=== PATIENT | female | born 1990 | race Caucasian/White ===

== ENCOUNTER 2016-11-29 11:16 | Outpatient (CLI) | payer SELFPAY ==
[2016-11-29 11:54] VITALS: BP 119/63; PULSE 89
[2016-11-29] MEDS ORDERED: PRENAT PO (11:55)
[2016-11-29] MEDS: TERBUTALINE 1 MG/ML INJ SC SCH ×2 (13:29→14:24)
[2016-11-29] MEDS ORDERED: LACTATED RINGER'S 1,000 ML IV SCH (13:30)
--- NOTE | 2016-11-29 14:06 | RADRPT ---
PROCEDURE: Limited OB ultrasound. CLINICAL INDICATION: labor TECHNIQUE: Sonographic evaluation to assess cervical length was performed. Transabdominal imaging of the gravid uterus was performed. COMPARISON: None FINDINGS: Single live intrauterine with cardiac activity is identified. The cervical length e quals 5.2 cm. Transverse maternal right presentation. Heart rate 148 beats per minute. Posterior grade 1 placenta. IMPRESSION: 1. Cervical length equals 5.2 cm. 2. Transverse lie RPTAT: JJ .Noel Pham MD, Date Time Electronically viewed and signed by .Noel Pham MD, on 11/29/2016 14:06 .L/
[2016-11-29 14:09] LABS: BASOPHIL # 0.1 10^3/ul (0.0-0.1); BASOPHILS % 0.5 % (0.0-2.0); EOSINOPHILS # 0.1 10^3/ul (0.0-0.5); EOSINOPHILS % 1.2 % (0.0-7.0); HEMATOCRIT 34.6 % (37.0-47.0); HEMOGLOBIN 11.5 g/dl (12.0-16.0); LYMPHOCYTES # 2.4 10^3/ul (0.8-2.9); LYMPHOCYTES % 20.9 % (15.0-51.0); MEAN CORPUSCULAR HGB CONC 33.2 g/dl (32.0-37.0); MEAN CORPUSCULAR VOLUME 87.2 fl (82.0-101.0); MONOCYTE # 0.7 10^3/ul (0.3-0.9); MONOCYTES % 5.9 % (0.0-11.0); NEUTROPHILS % 70.5 % (39.0-77.0); PLATELET COUNT 236 10^3/UL (140-415); RED BLOOD COUNT 3.97 10^6/ul (4.20-5.40); RED CELL DISTRIBUTION WIDTH 12.3 % (11.5-14.5); WHITE BLOOD COUNT 11.3 10^3/ul (4.8-10.8)
[2016-11-29 18:06] LABS: ADD UMIC YES; UR ASCORBIC ACID NEGATIVE (NEGATIVE); UR BILIRUBIN (Dip) NEGATIVE (NEGATIVE); UR BLOOD (Dip) NEGATIVE (NEGATIVE); UR CLARITY SLIGHTLY CLOUDY (CLEAR); UR COLOR YELLOW (YELLOW); UR GLUCOSE (Dip) NEGATIVE (NEGATIVE); UR KETONES (Dip) NEGATIVE (NEGATIVE); UR LEUKOCYTE ESTERASE (Dip) 1+ Leu/ul (NEGATIVE); UR MUCUS FEW /HPF (NONE SEEN); UR NITRITE (Dip) NEGATIVE (NEGATIVE); UR RBC 1 /HPF (0-5); UR SPECIFIC GRAVITY (Dip) 1.015 (1.003-1.030); UR TOTAL PROTEIN (Dip) NEGATIVE (NEGATIVE); UR UROBILINOGEN (Dip) NEGATIVE (NEGATIVE)
--- NOTE | 2016-11-29 18:59 | CONS ---
Date/Time of Note Date/Time of Note DATE: 11/29/16 TIME: 18:50 Consultation Date/Type/Reason Admit Date/Time November 29, 2016 OB triage consult Reason for Consultation This patient is a 26 years old 2 para 1 who had her previous delivery by section. Her estimated date of confinement is February 20, 2017 which makes her 28 weeks and 1 day. She came in complaining of left lower abdominal pain since morning. No other complaint no nausea no vomiting no diarrhea no dysuria On examination she is well-developed well-nourished somewhat overweight patient fairly comfortable. Her vital signs basically normal Blood pressure 119/63, pulse rate 62, respiration 18, temperature 97.8 Laboratory Tests Test 11/29/16 13:28 11/29/16 15:00 White Blood Count 11.310^3/ul Red Blood Count 3.9710^6/ul Hemoglobin 11.5g/dl Hematocrit 34.6% Mean Corpuscular Volume 87.2fl Mean Corpuscular Hemoglobin 29.0pg Mean Corpuscular Hemoglobin Concent 33.2g/dl Red Cell Distribution Width 12.3% Platelet Count 91416^3/UL Mean Platelet Volume 11.0fl Neutrophils % 70.5% Lymphocytes % 20.9% Monocytes % 5.9% Eosinophils % 1.2% Basophils % 0.5% Nucleated Red Blood Cells % 0.0/100WBC Neutrophils # 8.010^3/ul Lymphocytes # 2.410^3/ul Monocytes # 0.710^3/ul Eosinophils # 0.110^3/ul Basophils # 0.110^3/ul Nucleated Red Blood Cells # 0.010^3/ul Urine Color YELLOW Urine Clarity SLIGHTLY CLOUDY Urine pH 7.0 Urine Specific [place] 1.015 Urine Ketones NEGATIVEmg/dL Urine Nitrite NEGATIVEmg/dL Urine Bilirubin NEGATIVEmg/dL Urine Urobilinogen NEGATIVEmg/dL Urine Leukocyte Esterase 1+Shahida/ul Urine Microscopic RBC 1/HPF Urine Microscopic WBC 2/HPF Urine Mucus FEW/HPF Urine Hemoglobin NEGATIVEmg/dL Urine Glucose NEGATIVEmg/dL Urine Total Protein NEGATIVEmg/dl Current Medications Medications (Trade) Dose Ordered Sig/Caleb Route PRN Reason Start Time Stop Time Status Last Admin Dose Admin Lactated Ringer's (Lr) 1,000 ml @ 125 mls/hr Q8H IV 11/29/16 13:30 11/30/16 01:29 7/25/17 13:29 125 MLS/HR Terbutaline Sulfate (Brethine) 0.25 mg Q30MIN SC 11/29/16 13:30 11/29/16 15:00 DC 11/29/16 14:24 0.25 MG Constitutional: No chills, No diaphoresis, No disoriented, No febrile, No improved, No no complaints, No other, No poor po, No requiring IVF, No requiring O2 Eyes: No discharge, No no complaints, No other, No pain, No redness, No visual change ENT: No bleeding, No congestion, No discharge, No dysphagia, No no complaints, No other, No pain, No sore throat Respiratory: other (Chest clear to auscultation her precaution no rales) Cardiovascular: other (Heart normal sinus rhythm), No chest pain, No edema, No lightheadedness, No no complaints, No orthopenea , No palpitations, No paroxysmal nocturnal dyspnea Gastrointestinal: other (Abdomen is soft no rebound no CVA tenderness she has slight tenderness of both right and left lower quadrant and area no rebound no CVA tenderness), No blood, No constipation, No decreased appetite, No diarrhea, No flatus, No nausea, No no complaints, No pain, No passing stool, No vomiting Genitourinary: other (As I mentioned there was no costovertebral angle tenderness no dysuria), No bleeding, No discharge, No dysuria, No flank pain, No hematuria, No no complaints Musculoskeletal: No back pain, No bone/joint pain, No neck pain, No no complaints, No other, No restricted range of motion, No swelling Skin: No bruising, No erythema, No laceration, No no complaints, No other, No pruritis, No rash, No skin lesions Neurologic: other (Knee-jerk reflex are normal), No confusion, No dizziness, No focal-weakness, No headache, No no complaints , No seizure, No syncope Endocrine: No dry skin, No no complaints, No other, No polydypsia, No polyuria , No temp intolerance Lymphatic: No adenopathy, No lymphadema, No no complaints, No other, No tender nodes Additional Comments On lab studies her urinalysis was normal no bacteriuria no proteinuria. Her CBC was normal except for slight anemia hemoglobin of 11.5 and hematocrit of 34.6 WBC however was 11.3. On ultrasound study the result was a single live intrauterine with cardiac activity noted cervical length was 5.2 cm fetus in transverse position. Disposition. These normal findings (except for slightly elevated WBC) was discussed with patient and we offered her to go to emergency room for further workup due to the fact that wilde we did not find any abnormality Finaly she decided to go home if there are any other symptoms to come back , She did not want to go for further evaluation End of dictation Social History Smoking Status: Never smoker Exam/Review of Systems Vital Signs Vitals Vital Signs Date Time Temp Pulse Resp B/P Pulse Ox O2 Delivery O2 Flow Rate FiO2 11/29/16 11:54 97.8 89 119/63 Results Result Diagram: 11/29/16 1328 Results 24 hrs Laboratory Tests Test 11/29/16 13:28 11/29/16 15:00 White Blood Count 11.3 H Red Blood Count 3.97 L Hemoglobin 11.5 L Hematocrit 34.6 L Mean Corpuscular Volume 87.2 Mean Corpuscular Hemoglobin 29.0 Mean Corpuscular Hemoglobin Concent 33.2 Red Cell Distribution Width 12.3 Platelet Count 236 Mean Platelet Volume 11.0 H Neutrophils % 70.5 Lymphocytes % 20.9 Monocytes % 5.9 Eosinophils % 1.2 Basophils % 0.5 Nucleated Red Blood Cells % 0.0 Neutrophils # 8.0 H Lymphocytes # 2.4 Monocytes # 0.7 Eosinophils # 0.1 Basophils # 0.1 Nucleated Red Blood Cells # 0.0 Urine Color YELLOW Urine Clarity SLIGHTLY CLOUDY A Urine pH 7.0 Urine Specific [place] 1.015 Urine Ketones NEGATIVE Urine Nitrite NEGATIVE Urine Bilirubin NEGATIVE Urine Urobilinogen NEGATIVE Urine Leukocyte Esterase 1+ H Urine Microscopic RBC 1 Urine Microscopic WBC 2 Urine Mucus FEW A Urine Hemoglobin NEGATIVE Urine Glucose NEGATIVE Urine Total Protein NEGATIVE Medications Medications Current Medications Lactated Ringer's (Lr) 1,000 ml @ 125 mls/hr Q8H IV Last administered on t 13:29; Admin Dose 125 MLS/HR; Start 11/29/16 at 13:30; Stop 11/30/16 at 01: 29 HERIBERTO LEWIS MD Nov 29, 2016 18:59
== END 2016-11-29 18:58 | disposition home or self-care (01) ==
LOC: OBT 11:16 → L-D 11:17 → OBT 18:58
PROVIDERS: ATTEND Obstetrics & Gynecology
DX: O26.893 Other specified pregnancy related conditions, third trimester (principal); Z3A.28 28 weeks gestation of pregnancy; R10.32 Left lower quadrant pain
CPT/HCPCS: 36415; 76817; 81001; 85025; 96372; G0463; J7120; J3105

== ENCOUNTER 2017-02-20 18:00 | Inpatient (IN) | payer MEDICAID ==
[~2017-02-20] VITALS: Ht 160 cm; Wt 88.2 kg
[~2017-02-20 18:00] MED LIST: PRENAT PO
[2017-02-20 18:47] VITALS: Ht 160 cm; Wt 88.2 kg
[2017-02-20 18:48] VITALS: BP 113/75; PULSE 68; RESP 20
[2017-02-20] MEDS ORDERED: MISOPROSTOL 200 MCG TAB PR PRN (19:00)
[2017-02-20] MEDS ORDERED: OXYTOCIN 30 UNITS/LR 500 ML IV PRN (19:00)
[2017-02-20] MEDS ORDERED: BUTORPHANOL 2 MG INJ IV PRN (19:00)
[2017-02-20] MEDS ORDERED: METHYLERGONOVINE 0.2 MG INJ IM PRN (19:00)
[2017-02-20] MEDS ORDERED: IBUPROFEN 600 MG TAB PO PRN (19:00)
[2017-02-20] MEDS ORDERED: LIDOCAINE 1% (MPF) 30 ML INJ INJ PRN (19:00)
[2017-02-20] MEDS ORDERED: LACTATED RINGER'S 1,000 ML IV PRN (19:00)
[2017-02-20] MEDS ORDERED: OXYTOCIN 30 UNITS/LR 500 ML IV SCH ×2 (19:00)
[2017-02-20] MEDS ORDERED: CARBOPROST 250 MCG INJ IM PRN (19:00)
[2017-02-20] MEDS: LACTATED RINGER'S 1,000 ML IV SCH (20:17)
[2017-02-20 20:20] LABS: BASOPHILS % 0.3 % (0.0-2.0); EOSINOPHILS # 0.1 10^3/ul (0.0-0.5); EOSINOPHILS % 0.9 % (0.0-7.0); HEMATOCRIT 33.5 % (37.0-47.0); HEMOGLOBIN 11.1 g/dl (12.0-16.0); LYMPHOCYTES # 2.5 10^3/ul (0.8-2.9); LYMPHOCYTES % 23.5 % (15.0-51.0); MEAN CORPUSCULAR HEMOGLOBIN 27.4 pg (29.0-33.0); MEAN CORPUSCULAR HGB CONC 33.1 g/dl (32.0-37.0); MEAN CORPUSCULAR VOLUME 82.7 fl (82.0-101.0); MEAN PLATELET VOLUME 11.1 fl (7.4-10.4); MONOCYTE # 0.6 10^3/ul (0.3-0.9); MONOCYTES % 5.4 % (0.0-11.0); NEUTROPHIL # 7.4 10^3/ul (1.6-7.5); NEUTROPHILS % 69.3 % (39.0-77.0); PLATELET COUNT 223 10^3/UL (140-415); RED BLOOD COUNT 4.05 10^6/ul (4.20-5.40); RED CELL DISTRIBUTION WIDTH 13.8 % (11.5-14.5); WHITE BLOOD COUNT 10.6 10^3/ul (4.8-10.8)
[2017-02-20 20:40] LABS: INR 0.96; PROTIME 12.8 Sec (12.2-14.2)
[2017-02-20 20:41] LABS: PARTIAL THROMBOPLASTIN TIME 28.1 Sec (25.0-35.0)
[2017-02-20] MEDS ORDERED: DINOPROSTONE 10 MG VAG SUPP VAG ONE (21:30)
--- NOTE | 2017-02-20 22:18 | RADRPT ---
PROCEDURE: Obstetrical ultrasound, limited. CLINICAL INDICATION: Pelvic pain. TECHNIQUE: Multiple sonographic images of the pelvis were obtained using transabdominal technique . Images were obtained with hanley scale and color Doppler. The images were reviewed on a PACS works tation. COMPARISON: 11/29/2016. FINDINGS: There is a single living intrauterine gestation with the fetus in a cephalic presentation. he art tones of 137 beats per minute are identified. The placenta is fundal in location, grade 2. The re is no evidence of placenta previa or abruption. Measurements were made in order to determine age. The results are as follows: BPD =9.62 cm HC =34.20 cm AC =35.58 cm FL =7.30 cm. Estimated gestational age of approximately 38 weeks and 6 days. The estimated date of delivery is 02/28/2017. The EFW = 3662 +/- 549 grams. Estimated weight percentage equals 53.7%. IMPRESSION: Single viable intrauterine gestation of approximately 38 weeks and 6 days, with an ultrasound ELYSSA of 02/28/2017. .Johnny Cole MD, MD Date Time Electronically viewed and signed by .Johnny Cole MD, MD on 02/20/2017 22:17 .T/
[2017-02-21] MEDS ORDERED: LACTATED RINGER'S 1,000 ML IV ONE (00:11)
[2017-02-21] MEDS ORDERED: ONDANSETRON 4 MG INJ ONE (00:16)
[2017-02-21] MEDS ORDERED: CITRIC ACID/NA CITRATE 30 ML CUP ONE (00:16)
[2017-02-21] MEDS ORDERED: FENTAnyl 2MCG/ML-ROPIV 0.2% 100 ML ONE (00:20)
[2017-02-21] MEDS ORDERED: KETOROLAC 30 MG INJ IV PRN (00:30)
[2017-02-21] MEDS ORDERED: morphine 2 MG INJ IV PRN (00:30)
[2017-02-21] MEDS ORDERED: DIPHENHYDRAMINE 50 MG INJ IV PRN (00:30)
[2017-02-21] MEDS ORDERED: ONDANSETRON 4 MG INJ IV ONE (00:30)
[2017-02-21] MEDS ORDERED: ONDANSETRON 4 MG INJ IV PRN (00:30)
[2017-02-21] MEDS ORDERED: NALOXONE (0.4 MG/ML) INJ IV PRN (00:30)
[2017-02-21] MEDS ORDERED: CITRIC ACID/NA CITRATE 30 ML CUP PO ONE (00:30)
[2017-02-21] MEDS ORDERED: NALBUPHINE HCL (10 MG/1 ML) INJ IV PRN (00:30)
[2017-02-21] MEDS ORDERED: TRIMETHOBENZAMIDE 100 MG/ML VIAL IM PRN (00:30)
[2017-02-21] MEDS ORDERED: morphine 4 MG/ML VIAL IV PRN (00:30)
[2017-02-21] MEDS ORDERED: OXYTOCIN 30 UNITS/LR 500 ML IV SCH (01:30)
[2017-02-21] MEDS: LACTATED RINGER'S 1,000 ML IV SCH ×2 (02:49→09:41)
[2017-02-21] MEDS: FENTAnyl 2MCG/ML-ROPIV 0.2% 100 ML BAG EPI SCH ×2 (07:45→07:46)
--- NOTE | 2017-02-21 11:06 | HP ---
Date/Time of Note Date/Time of Note DATE: 02/21/17 TIME: 11:05 OB - History Hx of Present Free Text/Dictation G2[1 AT 40 WEEKS FOR INDUCTION Care: Good Care Ultrasounds: Normal mid trimester US Obstetrical Complications: None Medical Complications: None Past Family/Social History * Past Medical, Surgical, Family and Obstetric Histories reviewed from chart. OB Admission Exam Vital Signs Vital Signs Vital Signs Date Time Temp Pulse Resp B/P Pulse Ox O2 Delivery O2 Flow Rate FiO2 02/20/17 18:48 98.0 68 20 113/75 Room Air Physical Exam HEENT: WNL Heart: Rhythm Normal Lungs: Clear, Equal Abdomen: WNL Extremities: Normal Reflexes: Normal Cervical Dilatation: 10cm Effacement: 100% Station: +3 Membranes: Ruptured Amniotic Fluid: Clear Accelerations: Accelerations Present Decelerations: No Decelerations Last 72 hours Lab Results CBC & BMP 02/20/17 20:05 OB Assessment/Plan Reason for admission: induction of labor Induction Method: per Pitocin Protocol DEIRDRE STONE MD Feb 21, 2017 11:06
--- NOTE | 2017-02-21 11:07 | LDN ---
Date/Time of Note Date/Time of Note DATE: 02/21/17 TIME: 11:07 Delivery Summary TERM PREG . NSD Placenta Delivered: Spontaneously Meconium: none Episiotomy: No Perineal laceration: 1 Anesthesia type: Epidural Estimated blood loss: 300 Sponge & Needle done & correct: Yes All needle counts correct: Yes Any foreign bodies felt in the: No Problems: DEIRDRE STONE MD Feb 21, 2017 11:07
[2017-02-21 13:10] VITALS: BP 122/70; PULSE 58; RESP 18
[2017-02-21] MEDS: OXYTOCIN 30 UNITS/LR 500 ML IV SCH ×2 (13:15→17:03)
[2017-02-21] MEDS: IBUPROFEN 800 MG TAB PO SCH ×2 (13:21→17:58)
[2017-02-21] MEDS ORDERED: HYDROCODONE/APAP (5/325) TAB PO PRN (13:30)
[2017-02-21] MEDS ORDERED: OXYTOCIN 30 UNITS/LR 500 ML IV PRN (13:30)
[2017-02-21] MEDS ORDERED: DIPHENHYDRAMINE 25 MG CAP PO PRN (13:30)
[2017-02-21] MEDS ORDERED: LANOLIN 7 GM TUBE TOP PRN (13:30)
[2017-02-21] MEDS ORDERED: ACETAMINOPHEN 325 MG TAB PO PRN (13:30)
[2017-02-21] MEDS ORDERED: MAGNESIUM HYDROXIDE 30ML CUP PO PRN (13:30)
[2017-02-21] MEDS ORDERED: CARBOPROST 250 MCG INJ IM PRN (13:30)
[2017-02-21] MEDS ORDERED: METHYLERGONOVINE 0.2 MG INJ IM PRN (13:30)
[2017-02-21] MEDS ORDERED: ZOLPIDEM 5 MG TAB PO PRN (13:30)
[2017-02-21] MEDS ORDERED: MISOPROSTOL 200 MCG TAB PR PRN (13:30)
[2017-02-21] MEDS ORDERED: WITCH HAZEL/GLYCERIN PAD PR PRN (13:30)
[2017-02-21] MEDS ORDERED: BENZOCAINE 20% 56 ML SPRAY TOP PRN (13:30)
[2017-02-21] MEDS ORDERED: SENNA/DOCUSATE NA (8.6MG/50MG) TAB PO PRN (13:30)
[2017-02-21 16:00] VITALS: BP 131/73; PULSE 57; RESP 18
[2017-02-21] MEDS: LACTATED RINGER'S 1,000 ML IV* SCH ×2 (16:24→21:03)
[2017-02-21 19:45] VITALS: BP 110/62; PULSE 63; RESP 18
[2017-02-21] MEDS ORDERED: INFLUENZA VIRUS VACCINE 0.5 ML SYG IM* ONE (21:30)
[2017-02-22] VITALS: BP 116/62; PULSE 68; RESP 20
[2017-02-22] MEDS: IBUPROFEN 800 MG TAB PO SCH ×5 (00:13→23:50)
[2017-02-22 04:15] VITALS: BP 110/70; PULSE 60; RESP 18
[2017-02-22] MEDS: LACTATED RINGER'S 1,000 ML IV* SCH (05:03)
[2017-02-22 08:30] VITALS: BP 118/57; PULSE 60; RESP 18
[2017-02-22 11:39] LABS: BASOPHILS % 0.3 % (0.0-2.0); EOSINOPHILS # 0.1 10^3/ul (0.0-0.5); EOSINOPHILS % 0.8 % (0.0-7.0); HEMATOCRIT 31.3 % (37.0-47.0); LYMPHOCYTES # 1.9 10^3/ul (0.8-2.9); LYMPHOCYTES % 16.9 % (15.0-51.0); MEAN CORPUSCULAR HEMOGLOBIN 27.2 pg (29.0-33.0); MEAN CORPUSCULAR HGB CONC 31.9 g/dl (32.0-37.0); MEAN CORPUSCULAR VOLUME 85.1 fl (82.0-101.0); MEAN PLATELET VOLUME 11.7 fl (7.4-10.4); MONOCYTE # 0.5 10^3/ul (0.3-0.9); MONOCYTES % 4.3 % (0.0-11.0); NEUTROPHIL # 8.7 10^3/ul (1.6-7.5); NEUTROPHILS % 77.1 % (39.0-77.0); PLATELET COUNT 184 10^3/UL (140-415); RED BLOOD COUNT 3.68 10^6/ul (4.20-5.40); RED CELL DISTRIBUTION WIDTH 14.2 % (11.5-14.5); WHITE BLOOD COUNT 11.3 10^3/ul (4.8-10.8)
[2017-02-22] MEDS ORDERED: VITAMIN A & D 5 GM OINT PACKET TOP ONE (12:30)
[2017-02-22 16:00] VITALS: BP 116/76; PULSE 78; RESP 18
--- NOTE | 2017-02-22 18:01 | PN ---
Date/Time of Note Date/Time of Note DATE: 02/22/17 TIME: 17:54 OB Subjective Subjective Subjective Denies any complaint. Does not desire breast feed.vaginal bleeding in the amount of menses. OB Objective Objective Objective GA" A&O, NAD Abdomen: soft, fundus firm at the level of umbilicus Extremities: no calf tenderness, no cord palpable. Negative [place]. Breasts: No fissure, no evidence of mastitis Laboratory Tests Test 02/22/17 10:59 White Blood Count 11.310^3/ul Red Blood Count 3.6810^6/ul Hemoglobin 10.0g/dl Hematocrit 31.3% Mean Corpuscular Volume 85.1fl Mean Corpuscular Hemoglobin 27.2pg Mean Corpuscular Hemoglobin Concent 31.9g/dl Red Cell Distribution Width 14.2% Platelet Count 51818^3/UL Mean Platelet Volume 11.7fl Neutrophils % 77.1% Lymphocytes % 16.9% Monocytes % 4.3% Eosinophils % 0.8% Basophils % 0.3% Nucleated Red Blood Cells % 0.0/100WBC Neutrophils # 8.710^3/ul Lymphocytes # 1.910^3/ul Monocytes # 0.510^3/ul Eosinophils # 0.110^3/ul Basophils # 0.010^3/ul Nucleated Red Blood Cells # 0.010^3/ul Current Medications Medications (Trade) Dose Ordered Sig/Caleb Route PRN Reason Start Time Stop Time Status Last Admin Dose Admin Lactated Ringer's (Lr) 1,000 ml @ 125 mls/hr Q8H IV 02/20/17 18:41 02/21/17 13:05 DC 02/21/17 09:41 Butorphanol Tartrate (Stadol) 2 mg Q2H PRN IV PAIN 02/20/17 19:00 02/21/17 13:05 DC Lidocaine 30 ml 30 ml ONCE PRN INJ EPISIOTOMY/TEARING 02/20/17 19:00 02/21/17 13:05 DC Oxytocin/Lactated Ringer's 500 ml @ 125 mls/hr ONCE -MAY REPEAT X1 IV 02/20/17 19:00 02/21/17 13:05 DC 02/21/17 11:36 Oxytocin/Lactated Ringer's 500 ml @ 125 mls/hr ONCE IV 02/20/17 19:00 02/21/17 13:05 DC Ibuprofen 600 mg 600 mg ONCE PRN PO Mild Pain (Pain Score 1-3) 02/20/17 19:00 02/21/17 13:06 DC Lactated Ringer's 1,000 ml @ 2,000 mls/hr Q30M PRN IV PRE-EPIDURAL BOLUS 02/20/17 19:00 02/21/17 13:06 DC 02/20/17 23:51 Oxytocin/Lactated Ringer's 500 ml @ 0 mls/hr ONCE PRN IV For Hemorrhage Management 02/20/17 19:00 02/21/17 13:06 DC Methylergonovine Maleate (Methergine) 0.2 mg ONCE PRN IM VAGINAL BLEEDING 02/20/17 19:00 02/21/17 13:06 DC Carboprost Tromethamine (Hemabate) 250 mcg ONCE PRN IM VAGINAL BLEEDING 02/20/17 19:00 02/21/17 13:06 DC Misoprostol (Cytotec) 1,000 mcg ONCE PRN [place] VAGINAL BLEEDING 02/20/17 19:00 02/21/17 13:06 DC Dinoprostone (Cervidil Vaginal Supp) 10 mg ONCE ONCE VAG 02/20/17 21:30 02/20/17 21:31 DC 02/20/17 21:46 Naloxone HCl (Narcan) 0.1 mg Q2M PRN IV FOR RESP RATE 8 OR LESS 02/21/17 00:30 02/21/17 13:06 DC Ketorolac Tromethamine (Toradol) 30 mg Q6H PRN IV PAIN 02/21/17 00:30 02/21/17 13:06 DC Morphine Sulfate (morphine) 2 mg Q3H PRN IV PAIN LEVEL 1-5 02/21/17 00:30 02/21/17 13:06 DC Morphine Sulfate (morphine) 4 mg Q3H PRN IV PAIN LEVEL 6-10 02/21/17 00:30 02/21/17 13:06 DC Diphenhydramine HCl (Benadryl) 25 mg Q6H PRN IV ITCHING 02/21/17 00:30 02/21/17 13:06 DC Nalbuphine HCl (Nubain) 5 mg ONCE PRN IV ITCHING 02/21/17 00:30 02/21/17 13:06 DC Ondansetron HCl (Zofran Inj) 4 mg Q6H PRN IV NAUSEA AND/OR VOMITING 02/21/17 00:30 02/21/17 13:06 DC Trimethobenzamide HCl (Tigan) 200 mg Q6H PRN IM NAUSEA AND/OR VOMITING 02/21/17 00:30 02/21/17 13:06 DC Fentanyl/ Ropivacaine 100 ml 100 ml EPIDURAL INFUSION EPI 02/21/17 00:30 02/21/17 13:06 DC 02/21/17 07:46 Lactated Ringer's (Lr) 1,000 ml @ 1,000 mls/hr Q1H ONCE IV 02/21/17 00:11 02/21/17 01:10 DC Ondansetron HCl (Zofran Inj) 4 mg pre-procedure ONCE IV 02/21/17 00:30 02/21/17 00:31 DC 02/21/17 00:31 Citric Acid/ Sodium Citrate (Bicitra) 30 ml PRE-OP ONCE PO 02/21/17 00:30 02/21/17 00:31 DC 02/21/17 00:30 Citric Acid/ Sodium Citrate (Bicitra) 30 ml STK-MED ONCE .ROUTE 02/21/17 00:16 02/21/17 00:17 DC Ondansetron HCl 4 mg 4 mg STK-MED ONCE .ROUTE 02/21/17 00:16 02/21/17 00:17 DC Fentanyl/ Ropivacaine 100 ml @ ud STK-MED ONCE .ROUTE 02/21/17 00:20 02/21/17 00:21 DC Oxytocin/Lactated Ringer's 500 ml @ 0 mls/hr Q0M IV 02/21/17 01:30 02/21/17 13:06 DC 02/21/17 04:53 Oxytocin/Lactated Ringer's 500 ml @ 125 mls/hr Q4H IV 02/21/17 13:03 02/21/17 21:02 DC Lactated Ringer's (Lr) 1,000 ml @ 125 mls/hr Q8H IV* 02/21/17 13:03 02/21/17 16:24 Ibuprofen (Motrin) 800 mg Q6 PO 02/21/17 13:21 02/22/17 12:33 Acetaminophen/ Hydrocodone Bitart ([place] (5/325)) 2 tab Q4H PRN PO PAIN LEVEL 6-10 02/21/17 13:30 Diphenhydramine HCl (Benadryl) 25 mg Q6H PRN PO PRURITUS 02/21/17 13:30 Zolpidem Tartrate (Ambien) 10 mg QHS PRN PO INSOMNIA 02/21/17 13:30 Senna/Docusate Sodium (Senokot-S) 1 tab BID PRN PO CONSTIPATION 02/21/17 13:30 Magnesium Hydroxide (Milk Of Mag) 30 ml Q12H PRN PO CONSTIPATION 02/21/17 13:30 Witch Edith/ Glycerin (Tucks Pads) 1 pad BEDSIDE MEDICATION PRN WA HEMORRHOID/EPISIOTMY PAIN 02/21/17 13:30 02/21/17 16:23 Benzocaine (Dermoplast [place]) 1 spray BEDSIDE MEDICATION PRN TOP HEMORRHOID/EPISIOTMY PAIN 02/21/17 13:30 02/21/17 16:23 Lanolin (Gwo-T-Zgdzqs) 1 applic BEDSIDE MEDICATION PRN TOP BEDSIDE FOR CHRISTY TO NIPPLES 02/21/17 13:30 02/21/17 16:23 Measles/Mumps/ Rubella Vaccine Live (Mmr Ii Vaccine) 0.5 ml ONCE ONCE SC* 02/23/17 09:00 02/23/17 09:01 Diphtheria/ Tetanus/Acell Pertussis (Adacel) 0.5 ml ONCE ONCE IM* 02/23/17 09:00 02/23/17 09:01 Varicella Virus Vaccine Live (Varivax Vaccine With Diluent) 1,350 unit ONCE ONCE SC* 02/23/17 09:00 02/23/17 09:01 Acetaminophen 650 mg 650 mg Q4H PRN PO ELEVATED TEMPERATURE 02/21/17 13:30 Oxytocin/Lactated Ringer's 500 ml @ 0 mls/hr ONCE PRN IV For Hemorrhage Management 02/21/17 13:30 Methylergonovine Maleate (Methergine) 0.2 mg ONCE PRN IM VAGINAL BLEEDING 02/21/17 13:30 Carboprost Tromethamine (Hemabate) 250 mcg ONCE PRN IM VAGINAL BLEEDING 02/21/17 13:30 Misoprostol (Cytotec) 1,000 mcg ONCE PRN [place] VAGINAL BLEEDING 02/21/17 13:30 Influenza Virus Vaccine (Fluzone) 0.5 ml ONCE ONCE IM* 02/21/17 21:30 02/21/17 21:31 DC Vitamin A/Vitamin D (Vitamin A & D Oint) [address]-MED ONCE TOP 02/22/17 12:30 02/22/17 12:31 DC OB Assessment/Plan Other Assessment: PPD #1 S/p Doing well Does not have desire breast feed. Recommended tight bra and cold compress Routine post care ABIEL TONY MD Feb 22, 2017 18:01
[2017-02-22 19:45] VITALS: BP 118/86; PULSE 67; RESP 18
[2017-02-23 04:00] VITALS: BP 117/81; PULSE 67; RESP 18
--- NOTE | 2017-02-23 05:26 | DS ---
Date/Time of Note Date/Time of Note DATE: 02/23/17 TIME: 05:26 Discharge Summary Admission/Discharge Info Admit Date/Time Feb 20, 2017 at 18:12 Discharge Date/Time Discharge Diagnosis term preg Patient Condition: Stable Hospital Course unremarkable Home Meds Reported Medications Multivit/Min/Fol Ac/Iron/Pren* ( S*) 1 Tab Tab, 1 TAB PO DAILY, TAB 11/29/16 Primary Care Provider Care Physician No Primary Pending Labs Laboratory Tests Test 02/22/17 10:59 White Blood Count 11.310^3/ul (4.8-10.8) Red Blood Count 3.6810^6/ul (4.20-5.40) Hemoglobin 10.0g/dl (12.0-16.0) Hematocrit 31.3% (37.0-47.0) Mean Corpuscular Volume 85.1fl (82.0-101.0) Mean Corpuscular Hemoglobin 27.2pg (29.0-33.0) Mean Corpuscular Hemoglobin Concent 31.9g/dl (32.0-37.0) Red Cell Distribution Width 14.2% (11.5-14.5) Platelet Count 67775^3/UL (140-415) Mean Platelet Volume 11.7fl (7.4-10.4) Neutrophils % 77.1% (39.0-77.0) Lymphocytes % 16.9% (15.0-51.0) Monocytes % 4.3% (0.0-11.0) Eosinophils % 0.8% (0.0-7.0) Basophils % 0.3% (0.0-2.0) Nucleated Red Blood Cells % 0.0/100WBC (0.0-0.0) Neutrophils # 8.710^3/ul (1.6-7.5) Lymphocytes # 1.910^3/ul (0.8-2.9) Monocytes # 0.510^3/ul (0.3-0.9) Eosinophils # 0.110^3/ul (0.0-0.5) Basophils # 0.010^3/ul (0.0-0.1) Nucleated Red Blood Cells # 0.010^3/ul (0.0-0.0) DEIRDRE STONE MD Feb 23, 2017 05:26
--- NOTE | 2017-02-23 05:27 | PD.PPDC ---
LICENSED PRACTICAL VOCATIONAL NURSE Discharge Instruction Condition Patient Condition: Stable Diet Diet: Resume Regular Diet Activity/Restrictions Activity: Normal Activity May Shower Restrictions: No Exercising No Lifting No Driving No Sexual Activity Nothing in the Vagina No Notus No Tampons, douche Wound/Drain Care Instructions Wound/Drain Care Instructions: Wash with soap and water Keep clean and dry Follow-up Follow-up with Physician: Week/Weeks Return to clinic for [facility] Instructions: Fever greater than 101 Chills Worsening abdominal pain Excessive Vaginal Bleeding More than 2 pads per hour Unable to tolerate diet OB Instructions: Breast Tenderness Depression Blurried Vision Headache Surgical Instructions: Incisional Drainage Incisional Redness DEIRDRE STONE MD Feb 23, 2017 05:27
[2017-02-23] MEDS: IBUPROFEN 800 MG TAB PO SCH ×3 (05:38→17:30)
[2017-02-23 08:00] VITALS: BP 108/61; PULSE 58; RESP 18
[2017-02-23] MEDS ORDERED: MEASLES,MUMPS,RUBELLA VACCINE INJ SC* ONE (09:00)
[2017-02-23] MEDS ORDERED: DIPHTH/TET/ACEL PERTUSS (ADULT) 0.5 ML VIAL IM* ONE (09:00)
[2017-02-23] MEDS ORDERED: VARICELLA VACCINE LIVE/PF 1,350 UNIT/0.5 ML ML SC* ONE (09:00)
--- NOTE | 2017-02-23 10:00 | OPPN ---
Date/Time of Note Date/Time of Note DATE: 02/23/17 TIME: 09:58 Anesthesia Follow up Anesthesia Follow up Last documented vital signs Vital Signs Date Time Temp Pulse Resp B/P Pulse Ox O2 Delivery O2 Flow Rate FiO2 02/23/17 04:00 98.6 67 18 117/81 Room Air Respiratory function: WNL Cardiovascular function: WNL Comments 26 yo F POD 2 s/p labor epidural for labor analgesia, . Pt is doing well, VSS, A&Ox3, site c/d/i, no TTP/erythema/exudate, +ADLs, tolerating pos, no n/v, denies pain. No complications from anesthesia. CHRISTIANO HOUSER MD Feb 23, 2017 10:00
[2017-02-23 16:06] VITALS: BP 127/67; PULSE 79; RESP 18
== END 2017-02-23 18:00 | disposition home or self-care (01) | DRG 775 ==
LOC: L-D 18:12 → PP1 02-21 13:10
PROVIDERS: ADMIT Obstetrics & Gynecology; ATTEND Obstetrics & Gynecology
PROC: 10E0XZZ Delivery of Products of Conception, External Approach (ICD-10-PCS; principal; 2017-02-21)
PROC: 3E0P3VZ Introduction of Hormone into Female Reproductive, Percutaneous Approach (ICD-10-PCS; 2017-02-21)
DX: O48.0 Post-term pregnancy (principal); O99.02 Anemia complicating childbirth; Z3A.40 40 weeks gestation of pregnancy; Z37.0 Single live birth
CPT/HCPCS: 62319; 76815; 85025; 85610; 85730; 86592; 86900; 86901; 87340; 90686; 90715; 90716; J2405; J2590; J3010; J7120

== ENCOUNTER 2018-03-26 16:37 | Inpatient (IN) | END 2018-03-29 12:10 | disposition home or self-care (01) | DRG 785 ==

== ENCOUNTER 2018-10-30 19:01 | Emergency (ER) | payer MEDICAID ==
[~2018-10-30] VITALS: Ht 157.5 cm; Wt 90.4 kg
[2018-10-30 19:05] VITALS: Ht 157.5 cm; Wt 90.4 kg
--- NOTE | 2018-10-30 23:53 | ERD ---
ER Documentation Chief Complaint Chief Complaint VAG BLEEDING X'S 1 MONTH HPI 28-year-old female with no reported past medical surgical history who presents with complaint of vaginal bleeding over the past 1 month. Patient states she is had a emergency delivery about 7 months ago followed by tubal ligation. States that since October 07 of this month she been having daily bleeding with passage of clots, soaking about 8 pads per day approximately. She otherwise denies pelvic or abdominal pain. She denies any chest pain, shortness of breath, dyspnea, headache, dizziness, lightheadedness. States she has not seen her [facility] since the time of and has not followed up. Currently not on oral contraceptive medications. Prior to her tubal ligation states that she did not have relatively heavy periods regularly. She otherwise denies nausea, vomiting, diarrhea, urinary symptoms such as burning itching or frequency. ROS All systems reviewed and are negative except as per history of present illness. Medications Home Meds Active Scripts Cephalexin* (Keflex*) 500 Mg Capsule, 500 MG PO BID for 7 Days, CAP Prov:ARMANI MARIN PA-C 10/31/18 Medroxyprogesterone Acetate* (Provera*) 10 Mg Tablet, 10 MG PO DAILY for 7 Days, TAB Prov:ARMANI MARIN PA-C 10/31/18 Reported Medications Multivit/Min/Fol Ac/Iron/Pren* ( S*) 1 Tab Tab, 1 TAB PO DAILY, TAB 11/29/16 Allergies Allergies: Coded Allergies: No Known Drug Allergies (Verified Allergy, Unknown, 07/26/16) PMhx/Soc Medical and Surgical Hx: pt denies Medical Hx, pt denies Surgical Hx Hx Alcohol Use: No Hx Substance Use: No Hx Tobacco Use: No Smoking Status: Never smoker FmHx Family History: No diabetes, No coronary disease, No other Physical Exam Vitals Vital Signs Date Temp Pulse Resp B/P (MAP) Pulse Ox O2 O2 Flow FiO2 Time Delivery Rate 10/30/18 98.1 74 18 151/89 99 19:05 (109) Physical Exam Const: No acute distress Head: Atraumatic Eyes: Normal Conjunctiva ENT: Normal External Ears, Nose and Mouth. Neck: Full range of motion. No meningismus. Resp: Clear to auscultation bilaterally Cardio: Regular rate and rhythm, no murmurs Abd: Soft, non tender, non distended. Normal bowel sounds Skin: No petechiae or rashes Back: No midline or flank tenderness Ext: No cyanosis, or edema Neur: Awake and alert Psych: Normal Mood and Affect Result Diagram: 10/30/18 0004 10/30/18 0004 Results 24 hrs Laboratory Tests Test 10/30/18 00:04 10/30/18 01:37 10/31/18 00:19 White Blood Count 8.9 10^3/ul Red Blood Count 4.62 10^6/ul Hemoglobin 13.1 g/dl Hematocrit 39.3 % Mean Corpuscular Volume 85.1 fl Mean Corpuscular Hemoglobin 28.4 pg Mean Corpuscular 33.3 g/dl Hemoglobin Concent Red Cell Distribution Width 13.1 % Platelet Count 270 10^3/UL Mean Platelet Volume 10.9 fl Immature Granulocytes % 0.600 % Neutrophils % 51.2 % Lymphocytes % 37.9 % Monocytes % 6.5 % Eosinophils % 3.0 % Basophils % 0.8 % Nucleated Red Blood Cells % 0.0 /100WBC Immature Granulocytes # 0.050 10^3/ul Neutrophils # 4.6 10^3/ul Lymphocytes # 3.4 10^3/ul Monocytes # 0.6 10^3/ul Eosinophils # 0.3 10^3/ul Basophils # 0.1 10^3/ul Nucleated Red Blood Cells # 0.0 10^3/ul Prothrombin Time 12.6 Sec Prothrombin Time Ratio 1.0 INR International 0.93 Normalized Ratio Activated Partial Thromboplast 33.4 Sec Time Sodium Level 145 mmol/L Potassium Level 4.0 mmol/L Chloride Level 105 mmol/L Carbon Dioxide Level 25 mmol/L Anion Gap 15 Blood Urea Nitrogen 11 mg/dl Creatinine 0.49 mg/dl Est Glomerular Filtrat > 60 mL/min Rate mL/min Glucose Level 124 mg/dl Calcium Level 9.5 mg/dl Urine Color RED Urine Clarity CLOUDY Urine pH 7.0 Urine Specific [place] 1.026 Urine Ketones NEGATIVE mg/dL Urine Nitrite NEGATIVE mg/dL Urine Bilirubin NEGATIVE mg/dL Urine Urobilinogen NEGATIVE mg/dL Urine Leukocyte Esterase 1+ Shahida/ul Urine Microscopic RBC > 182 /HPF Urine Microscopic WBC 74 /HPF Urine Squamous Epithelial Cells MANY /HPF Urine Bacteria FEW /HPF Urine Mucus MODERATE /HPF Urine Hemoglobin 3+ mg/dL Urine Glucose NEGATIVE mg/dL Urine Total Protein 2+ mg/dl POC Beta HCG, Qualitative NEGATIVE Current Medications Medications Dose Sig/Caleb Start Time Status Last (Trade) Ordered Route PRN Stop Time Admin Dose Reason Admin 10 mg ONCE ONCE 10/31/18 DC 10/31/18 Medroxyproges PO 01:30 01:51 terone 10/31/18 01:31 Acetate (Provera) Procedures/MDM patient presents with 30 plus days vaginal bleeding most likely of nonemergent etiology. ED Workup: CBC, BMP, UA, bHCG, Type&Screen H/H , within normal limits coagulation studies, platelet count 270 Pelvic ultrasound without acute finding UA with 1+ leukocyte esterase few bacteria, will treat treat for presumed UTI with Keflex Patient given single dose of 10 mg of Provera, will give Rx for 10-day course of 10 mg of Provera, patient advised to follow-up with [facility] Based on History, Exam, and ED Workup patients presentation not consistent with ectopic , molar , life-threatening coagulopathy, trauma, serious bacterial infection, central process or other emergency. Most likely, patients bleeding is secondary to non-emergent cause of abnormal uterine bleeding. Disposition: Will discharge home with return precautions and instruction for prompt OBGYN follow up. DISPOSITION PLAN: We discussed follow up with the patient's primary care doctor within 24 to 48 hours. Patient counseled regarding my diagnostic impression and care plan. Prior to discharge all questions answered. Pt agrees with treatment plan and understands strict return precautions. Precautionary instructions provided including instructions to return to the ER if not improving or for any worsening or changing symptoms or concerns. Disclaimer: Inadvertent spelling and grammatical errors are likely due to EHR/dictation software use and do not reflect on the overall quality of patient care. Also, please note that the electronic time recorded on this note does not necessarily reflect the actual time of the patient encounter. Departure Diagnosis: Primary Impression: Uterine bleeding, dysfunctional Condition: Stable Patient Instructions: Dysfunctional Uterine Bleeding Referrals: COMMUNITY CLINICS YOU HAVE RECEIVED A MEDICAL SCREENING EXAM AND THE RESULTS INDICATE THAT YOU DO NOT HAVE A CONDITION THAT REQUIRES URGENT TREATMENT IN THE EMERGENCY DEPARTMENT. FURTHER EVALUATION AND TREATMENT OF YOUR CONDITION CAN WAIT UNTIL YOU ARE SEEN IN YOUR DOCTORS OFFICE WITHIN THE NEXT 1-2 DAYS. IT IS YOUR RESPONSIBILITY TO MAKE AN APPOINTMENT FOR FOLOW-UP CARE. IF YOU HAVE A PRIMARY DOCTOR --you should call your primary doctor and schedule an appointment IF YOU DO NOT HAVE A PRIMARY DOCTOR YOU CAN CALL OUR PHYSICIAN REFERRAL HOTLINE AT IF YOU CAN NOT AFFORD TO SEE A PHYSICIAN YOU CAN CHOSE FROM THE FOLLOWING [facility] [id number] [facility] [address] [facility] [address] [facility] [address] [facility] [address] [facility]. [facility] [address] Additional Instructions: Call your primary care doctor TOMORROW for an appointment during the next 2-3 days.See the doctor sooner or return here if your condition worsens before your appointment time. Your [employer] specialist tomorrow and make a follow-up appointment. If your bleeding does not improve we develop concerning symptoms return to the emergency room for further evaluation. ARMANI MARIN PA-C Oct 30, 2018 23:53
[2018-10-31] MEDS ORDERED: MEDROXYPROGESTERONE 10 MG TAB PO ONE (01:30)
[2018-10-31] MEDS ORDERED: MEDR10TA2 PO (01:33)
[2018-10-31] MEDS ORDERED: CEPH-443 PO (02:38)
[2018-10-31 02:48] VITALS: BP 148/70; PULSE 80; RESP 19
== END 2018-10-31 02:49 | disposition home or self-care (01) ==
LOC: FTE 19:01
DX: N93.8 Other specified abnormal uterine and vaginal bleeding (principal)
CPT/HCPCS: 36415; 76856; 80048; 81001; 81025; 85025; 85610; 85730; 86850; 86900; 86901; Z7502; Z7610